=== PATIENT | male | born 1960 | race Caucasian/White ===

== ENCOUNTER 2018-04-27 14:10 | Inpatient (IN) ==
[2018-04-27] MEDS ORDERED: Bisacodyl 10 MG Supp RECTAL PRN (15:18)
[2018-04-27] MEDS ORDERED: Enoxaparin Inj 40 MG/0.4 ML Syringe SQ ONE (15:18)
[2018-04-27] MEDS ORDERED: Sod Chloride 0.9% Inj 1,000 ML OTHER PRN ×2 (15:24)
[2018-04-27] MEDS ORDERED: Acetaminophen 325 MG Tablet PO PRN (15:24)
[2018-04-27] MEDS ORDERED: Heparin 10,000 UNITS/10 ML Vial (for IV use) OTHER PRN ×2 (15:24)
[2018-04-27] MEDS ORDERED: Albumin Human 25% Inj 100 ML IV.SIG PRN (15:24)
[2018-04-27] MEDS ORDERED: Gelatin 12 MM/7 MM Topical Foam TOPICAL PRN (15:24)
[2018-04-27] MEDS ORDERED: Sod Chloride 0.9% Inj 1,000 ML IV.CONT PRN (15:24)
--- NOTE | 2018-04-27 15:37 | P.HPVS ---
History of Present Illness Chief Complaint: Malfunctioning right upper extremity AV fistula History of Present Illness: 58-year-old male with a past medical history of end-stage renal disease who receives hemodialysis via right upper extremity AV fistula on Monday and Monday his last hemodialysis was Monday of this week. He presents to our clinic today with a chief complaint of malfunctioning right upper extremity AV fistula. The patient reports prolonged bleeding from the fistula after hemodialysis. On exam, he was noted to have a pseudoaneurysm with an overlying ulcer. The patient was transferred to the hospital urgently for surgical repair. He denies any chest pain or shortness of breath. - Inpatient Certification If this patient has been admitted as an Inpatient: I certify that the inpatient services were ordered in accordance with Medicare regulations governing the order. This includes certification that hospital inpatient services are reasonable and necessary and in the case of services not specified as inpatient-only under 42 CFR 419.22(n), that they are appropriately provided as inpatient services in accordance to with the 2-midnight benchmark under 43 CFR 412.3(e) Estimated Total Length of Stay (Days): 3 Plans for Post Hospital Care: Home Review of Systems All other systems reviewed negative except as stated in HPI PMFSH - History History Provided By: Patient - Medical History Medical History: Medical History (Last Updated 04/27/18 @ 15:15 by Amanda Dave) Chronic kidney disease (CKD) Dialysis AV fistula malfunction Dialysis patient - Tobacco History Second Hand Smoke Exposure: No Tobacco Use In Past 30 Days: No Smoking Status: Former smoker Tobacco Type: Cigarettes - Alcohol History How Often Do You Have a Drink Containing Alcohol: Never - Substance Use History Substance History: No History of Abuse - Immunization History Tetanus Immunization: Unsure Hx Influenza Vaccine This Season: No Medications and Allergies Active Medications: Active Medications Al Hydroxide/Mg Hydroxide (Milk Of Magnesia Liq) 30 ml PO Q12H PRN PRN Reason: Mild Constipation Bisacodyl (Dulcolax Supp) 10 mg RECTAL DAILY PRN PRN Reason: SEVERE CONSITIPATION Lactulose (Lactulose Liq) 30 ml PO DAILY PRN PRN Reason: SEVERE CONSITIPATION Senna/Docusate Sodium (Chari-Colace) 1 tab PO BID TOÑO Sennosides (Senokot) 17.2 mg PO Q12H PRN PRN Reason: Moderate Constipation Allergies Allergy/AdvReac Type Severity Reaction Status Date / Time No Known Allergies Allergy Verified 04/27/18 15:09 Physical Exam Vital Signs / I&O: Intake & Output 04/26/18 04/27/18 04/27/18 18:59 06:59 18:59 Weight 81.9 kg Other: Weight On Admission 81.9 kg Neuro: Awake alert oriented x3 HEENT: Normocephalic atraumatic Neck: Supple Heart: S1-S2 Lungs: Clear to auscultation bilateral Abdomen: Soft nontender nondistended Vascular: Right upper extremity AV fistula good thrill. There is pseudoaneurysm with an overlying ulceration that is covered by dark scab. No active bleeding. Caprini VTE Risk Assessment Caprini VTE Risk Assessment: Moderate/High Risk (score >= 2) Caprini Risk Assessment Model: Point Value = 1 Point Value = 2 Point Value = 3 Point Value = 5 Age 41-60 Minor surgery BMI > 25 kg/m2 Swollen legs Varicose veins or History of unexplained or recurrent spontaneous Oral contraceptives or hormone replacement Sepsis (< 1 month) Serious lung disease, including pneumonia (< 1 month) Abnormal pulmonary function Acute myocardial infarction Congestive heart failure (< 1 month) History of inflammatory bowel disease Medical patient at bed rest Age 61-74 Arthroscopic surgery Major open surgery (> 45 min) Laparoscopic surgery (> 45 min) Malignancy Confined to bed (> 72 hours) Immobilizing plaster cast Central venous access Age >= 75 History of VTE Family history of VTE Factor V Leiden Prothrombin [id number] Lupus anticoagulant Anticardiolipin antibodies Elevated serum homocysteine Heparin-induced thrombocytopenia Other congenital or acquired thrombophilia Stroke (< 1 month) Elective arthroplasty Hip, pelvis, or leg fracture Acute spinal cord injury (< 1 month) Prophylaxis Regimen: Total Risk Factor Score Risk Level Prophylaxis Regimen 0-1 Low Early ambulation 2 Moderate Order ONE of the following: *Sequential Compression Device (SCD) *Heparin 5000 units SQ BID 3-4 Higher Order ONE of the following medications: *Heparin 5000 units SQ TID *Enoxaparin/Lovenox 40 mg SQ daily (WT < 150 kg, CrCl > 30 mL/min) *Enoxaparin/Lovenox 30 mg SQ daily (WT < 150 kg, CrCl > 10-29 mL/min) *Enoxaparin/Lovenox 30 mg SQ BID (WT < 150 kg, CrCl > 30 mL/min) AND/OR *Sequential Compression Device (SCD) 5 or more Highest Order ONE of the following medications: *Heparin 5000 units SQ TID (Preferred with Epidurals) *Enoxaparin/Lovenox 40 mg SQ daily (WT < 150 kg, CrCl > 30 mL/min) *Enoxaparin/Lovenox 30 mg SQ daily (WT < 150 kg, CrCl > 10-29 mL/min) *Enoxaparin/Lovenox 30 mg SQ BID (WT < 150 kg, CrCl > 30 mL/min) AND *Sequential Compression Device (SCD) Assessment and Plan - Assessment (1) Pseudoaneurysm of AV hemodialysis fistula Code(s): T82.898A - Other specified complication of vascular prosthetic devices , implants and grafts, initial encounter Status: Acute - Plan Right upper extremity AV fistula pseudoaneurysm with ulceration and impending rupture. 1. Admit the patient to the hospital 2. Consult nephrology for hemodialysis today. 3. I will schedule the patient for repair of the right upper extremity pseudoaneurysm and possible salvage of the fistula. 4. I will place a permacath for hemodialysis until wound heals. Wai Garrison MD [facility] [phone]
--- NOTE | 2018-04-27 18:39 | MB ---
cc: Percy Espinoza MD DATE: 04/27/2018 REASON FOR CONSULTATION: End-stage renal disease, on hemodialysis for management. HISTORY OF PRESENT ILLNESS: This is a 58-year-old male with a past medical history of end-stage renal disease on hemodialysis. The etiology of renal failure is not very clear. He has no history of hypertension or diabetes mellitus. Was referred here because of the aneurysm of the right arm arteriovenous fistula. The patient has been on hemodialysis Monday, Monday and Monday and he is getting dialysis at [facility] and has been following with Dr. Mcgowan. The patient was found to have pseudoaneurysm in the right arm AV fistula along with overlying superficial ulceration. There is no discharge or bleeding from there. He has pain, but the pain is mainly in the hand when he goes on dialysis. When he is not on dialysis he does not have any pain. He has been on hemodialysis for the last 3 years. Denies any shortness of breath. No chest pain. No nausea, vomiting. No history of fever. PAST MEDICAL HISTORY: End-stage renal disease, on hemodialysis. PAST SURGICAL HISTORY: History of right arm arteriovenous fistula surgery. REVIEW OF SYSTEMS: There is no history of fever. No headache, dizziness or blurring of vision. No shortness of breath, no chest pain. No palpitation. No nausea or vomiting. No abdominal pain. The patient has last hemodialysis done on Monday. He has pain in the right hand when he gets the dialysis, but when he is not on dialysis he does not have any pain. SOCIAL HISTORY: The patient has no history of smoking or alcoholism. FAMILY HISTORY: Noncontributory. ALLERGIES: HE HAS NO KNOWN DRUG ALLERGIES. MEDICATIONS: 1. His Epogen has been on hold. 2. Catapres 0.1 mg p.r.n. 3. Benadryl p.r.n. mannitol 4. Mannitol. 5. Lactulose. 6. Zofran These are all p.r.n. medications with dialysis. PHYSICAL EXAMINATION: GENERAL: He is awake, alert. He is not in acute distress. VITAL SIGNS: His vitals are not recorded yet and he does not have any labs done either. HEENT: Pupils are mid constricted. Nonicteric sclerae. Conjunctivae normal. NECK: Supple. JVD is not elevated. LUNGS: The patient has bilateral good air entry with few basilar rales. CARDIOVASCULAR: S1, S2. Regular rate and rhythm. ABDOMEN: Soft, flat. No tenderness, slightly distended. EXTREMITIES: He has mild edema in the legs. Right arm AV fistula site is slightly enlarged, especially near the elbow. He has pseudoaneurysm with swelling and superficial ulceration with scab on it. There is no discharge or bleeding. INVESTIGATIONS: No labs or imaging study done. ASSESSMENT AND PLAN: 1. End-stage renal disease on hemodialysis. 2. AV fistula, pseudoaneurysm. 3. Mild fluid overload status. The patient has been on hemodialysis Monday, Monday and Monday for the last 3 years, has been following with Dr. Mcgowan. He is due for dialysis today. I have already arranged for his hemodialysis. He will be going soon for the dialysis. Discussed with the vascular surgery. He will be going for the ligation of his fistula tomorrow and he will need a PermCath for future dialysis and then AV fistula surgery in the future. Thank you for the consultation. I will follow the patient while he is in the hospital, I will follow the labs. Marcie Espinoza MD AQJ/kyleigh , 03:46 PM , 03:56 PM
[2018-04-27 19:01] LABS: Hematocrit 34.6 % (39.0-51.0); Hemoglobin 12.1 gm/dL (13.0-17.0); Mean Corpuscular HGB Conc 34.9 % (32.0-36.0); Mean Corpuscular Hemoglobin 31.1 pg (27.0-34.0); Mean Corpuscular Volume 89.2 fL (80.0-100.0); Mean Platelet Volume 7.5 fL (7.0-11.0); Platelet Count 198 th/mm3 (150-450); Red Blood Count 3.88 mil/mm3 (4.50-5.90); Red Cell Distribution Width 13.4 % (11.6-17.2)
[2018-04-27] MEDS: Senna/Docusate Sodium 8.6/50 MG Tablet PO SCH (20:42)
--- NOTE | 2018-04-27 22:40 | XR ---
EXAM DATE: 04/27/2018 10:37 PM EST AGE/SEX: 58 years / Male INDICATIONS: Preoperative. CLINICAL DATA: This is the patient's initial encounter. Patient reports that signs and symptoms have been present for 1 day and indicates a pain score of 0/10. MEDICAL/SURGICAL HISTORY: None. None. COMPARISON: No prior exams available for comparison. FINDINGS: Multiple calcified granulomas in the left lung apex. Lungs are otherwise clear. The cardiomediastinal contours are unremarkable. Osseous structures are intact. CONCLUSION: 1. Left apical calcified granulomas. 2. Otherwise, no acute abnormality. Electronically signed by: Gordo Ferris MD Board Certified Radiologist 04/27/2018 10:[address]
[2018-04-27] MEDS ORDERED: Chlorhexidine Gluconate 2% 1 Pack (2 Cloths) TOPICAL ONE (23:11)
[2018-04-27] MEDS ORDERED: Metoprolol Tartrate 25 MG Tablet PO ONE (23:11)
[2018-04-27] MEDS ORDERED: Sodium Chlor 0.9% Inj 500 ML IV.SIG SCH (23:45)
[2018-04-28 00:03] LABS: Calcium 8.5 mg/dL (8.5-10.1); Carbon Dioxide 31.3 meq/L (21.0-32.0); Potassium 3.4 meq/L (3.5-5.1)
[2018-04-28 00:43] LABS: Hepatitits B Surface Antigen Nonreactive (Nonreactive)
[2018-04-28 01:17] LABS: Hepatitis A IgM Antibody Nonreactive (Nonreactive)
[2018-04-28] MEDS ORDERED: Protamine Sulfate Inj 50 MG/5 ML Vial ONE (07:07)
[2018-04-28] MEDS ORDERED: Heparin 10,000 UNITS/10 ML Vial (for IV use) ONE (07:07)
[2018-04-28] MEDS ORDERED: Heparin/NS PF Inj 500 ML ONE (07:07)
[2018-04-28] MEDS ORDERED: ceFAZolin 1 GM Premix Inj 2 GM/100 ML PIGGYBACK IV.SIG ONE (07:07)
[2018-04-28] MEDS ORDERED: Bupivacaine 0.5% Inj 50 ML MDV Vial ONE (07:07)
[2018-04-28] MEDS ORDERED: Thrombin Topical 20,000 UNIT Spray Kit TOPICAL ONE (07:08)
[2018-04-28] MEDS ORDERED: fentaNYL Citrate Inj 100 MCG/2 ML Ampul ONE ×2 (10:42→11:09)
[2018-04-28] MEDS ORDERED: *morphine SULFATE 4 MG/ML PERIprocedure ONLY ONE (10:47)
[2018-04-28] MEDS ORDERED: diphenhydrAMINE HCl 50 MG/ML VIAL IV.PUSH ONE (11:09)
[2018-04-28] MEDS: fentaNYL Citrate Inj 100 MCG/2 ML Ampul IV.PUSH SCH ×4 (11:13→11:30)
--- NOTE | 2018-04-28 11:24 | P.OP ---
- Preoperative Diagnosis (1) Pseudoaneurysm of AV hemodialysis fistula - Postoperative Diagnosis (1) Pseudoaneurysm of AV hemodialysis fistula Date of procedure: 04/28/18 Procedure: 1. Repair of a right AV fistula pseudoaneurysm with excision and placement of an interposition graft 2. Ultrasound-guided access of the left internal jugular vein 3. Placement of left internal jugular vein permacath 4. radiological supervision interpreted Anesthesia: GETA Surgeon: Wai Garrison MD Estimated blood loss (mL): 50 Operation and Findings: Finding 1. Ruptured right AV fistula pseudoaneurysm with an overlying ulceration. That was repaired using excision and placement of an interposition bovine carotid graft. 2. Successful placement of a left internal jugular vein permacath. Description of the operation The patient was taken to the operating room, laid supine on the OR table. After general trach anesthesia, the patient was prepped and draped in the standard sterile fashion. Timeout was called with all members in the OR in agreement. An incision was made over the right upper extremity fistula and dissection was taken down through the subcutaneous tissue. The fistula was dissected proximally and distally and proximal distal control was obtained. The patient was heparinized. The pseudoaneurysm and overlying skin were dissected and excised. The tissue was sent for microbiology and pathology. Hemostasis achieved. The wound was closed in multiple layers using 2-0 Vicryl suture followed by Monocryl suture. Sterile dressing was applied. Attention was turned to the placement of a left internal jugular vein permacath. Using ultrasound guidance access, we accessed the left internal jugular vein. A supra core was introduced into the inferior vena cava. The catheter was tunneled in the anterior chest wall. The tract was dilated. The catheter was placed with the tip at the superior vena cava right atrial junction. Catheter flushes and draws without any difficulties. The catheter was secured using nylon suture. The neck skin incision was closed using Monocryl suture. Sterile dressing was applied. The patient tolerated the procedure well and was taken to recovery unit in stable condition.
[2018-04-28] MEDS: Senna/Docusate Sodium 8.6/50 MG Tablet PO SCH ×2 (12:12→19:59)
[2018-04-28 13:46] LABS: Hematocrit 34.8 % (39.0-51.0); Hemoglobin 12.7 gm/dL (13.0-17.0); Mean Corpuscular HGB Conc 36.6 % (32.0-36.0); Mean Corpuscular Hemoglobin 32.6 pg (27.0-34.0); Mean Corpuscular Volume 89.1 fL (80.0-100.0); Mean Platelet Volume 8.1 fL (7.0-11.0); Platelet Count 180 th/mm3 (150-450); Red Cell Distribution Width 13.4 % (11.6-17.2); White Blood Count 11.3 th/mm3 (4.0-11.0)
[2018-04-28 14:05] LABS: Calcium 8.2 mg/dL (8.5-10.1); Potassium 4.7 meq/L (3.5-5.1)
--- NOTE | 2018-04-28 16:14 | XR ---
EXAM DATE: 04/28/2018 3:23 PM EST AGE/SEX: 58 years / Male INDICATIONS: Heart catheter. CLINICAL DATA: This is the patient's initial encounter. Patient reports that signs and symptoms have been present for 1 day and indicates a pain score of Nonresponsive. MEDICAL/SURGICAL HISTORY: Non-responsive. Non-responsive. COMPARISON: No prior exams available for comparison. FINDINGS: Catheter overlies superior vena cava. On the single spot film available. CONCLUSION: Fluoroscopic spot film reveals catheter overlying the expected location of superior vena cava. Electronically signed by: Eduardo Jenkins MD Board Certified Radiologist 04/28/2018 4:13 PM EST
--- NOTE | 2018-04-28 16:21 | XR ---
EXAM DATE: 04/28/2018 1:12 PM EST AGE/SEX: 58 years / Male INDICATIONS: Left sided catheter placement for dialysis, pain at catheter site. CLINICAL DATA: This is the patient's initial encounter. Patient reports that signs and symptoms have been present for 1 day and indicates a pain score of 4/10. MEDICAL/SURGICAL HISTORY: None. None. COMPARISON: [facility] [place], CHEST 1V SINGLE AP, 04/27/2018. . FINDINGS: Double-lumen catheter tip in superior vena cava. No pneumothorax. No effusion. Minimal basilar atelec tasis or scarring. Calcified granulomata upper left lung. CONCLUSION: Left-sided dialysis catheter tip overlies the superior vena cava. Electronically signed by: Eduardo Jenkins MD Board Certified Radiologist 04/28/2018 4:20 PM EST
--- NOTE | 2018-04-28 18:43 | ECG ---
Date Performed: 04/27/2018 Time Performed: 15:50:01 PTAGE: 58 years EKG: Sinus rhythm NORMAL ECG NO PREVIOUS TRACING DOCTOR: Rufino Casillas Interpretating Date/Time 04/28/2018 18:42:03
--- NOTE | 2018-04-28 20:59 | P.PNNP ---
Subjective Interval history: Patient seen in AM, in the RR, after AVF ligation, no SOB. Physical Exam Vital signs: Vital Signs 04/27/18 23:00 04/27/18 23:58 04/28/18 03:00 Temperature 97.1 F L Pulse Rate 66 62 64 Respiratory Rate 16 Blood Pressure 137/64 Pulse Oximetry 04/28/18 04:00 04/28/18 05:00 04/28/18 06:00 Temperature 99.5 F Pulse Rate 66 62 66 Respiratory Rate 18 Blood Pressure 154/67 H Pulse Oximetry 04/28/18 10:29 04/28/18 10:45 04/28/18 11:00 Temperature 97.5 F L Pulse Rate 67 66 68 Respiratory Rate 15 17 17 Blood Pressure 161/79 H 146/51 H 139/60 Pulse Oximetry 99 99 100 04/28/18 11:15 04/28/18 11:30 04/28/18 12:00 Temperature 98.1 F 98.2 F Pulse Rate 66 65 66 Respiratory Rate 19 19 20 Blood Pressure 139/67 140/65 147/65 H Pulse Oximetry 97 100 100 04/28/18 13:00 04/28/18 14:00 04/28/18 15:00 Temperature Pulse Rate 68 74 69 Respiratory Rate Blood Pressure Pulse Oximetry 04/28/18 15:32 04/28/18 16:00 04/28/18 17:00 Temperature 98.4 F Pulse Rate 69 74 76 Respiratory Rate 20 Blood Pressure 147/68 H Pulse Oximetry 99 04/28/18 18:00 Temperature Pulse Rate 82 Respiratory Rate Blood Pressure Pulse Oximetry Intake & Output 04/28/18 04/28/18 04/29/18 06:59 18:59 06:59 Intake Total 240 / 240 780 / 780 Output Total 2100 / 2100 150 / 150 Balance -1860 / -1860 630 / 630 Weight 82 kg Intake: IV 100 / 100 Heparin/NS PF Inj 500 ML @ 0 0 / 0 mls/hr .ROUTE .STK-MED ONE Rx#: [id number] Ancef 1 GM Premix Inj 2 gm In 100 / 100 100 ml @ 0 mls/hr IV.SIG .STK- MED ONE Rx#:[id number] Oral 240 / 240 480 / 480 Anesthesia Amount 200 / 200 Output: Urine 100 / 100 100 / 100 Hemodialysis Amount 1999 Estimated Blood Loss 50 / 50 Other: Date of Last Bowel Movement 04/27/18 04/27/18 # Bowel Movements 0 - Constitutional no acute distress - Routine HEENT Exam Head: Present: normocephalic - Routine Neck Exam Present: supple, full ROM - Routine Cardiovascular Exam Present: RRR, S1, S2 - Routine Abdominal Exam Present: soft - Routine Neurological Exam Present: alert, oriented X3 Assessment and Plan - Assessment (1) End stage chronic kidney disease Code(s): N18.6 - End stage renal disease Status: Acute (2) Pseudoaneurysm of AV hemodialysis fistula Code(s): T82.898A - Other specified complication of vascular prosthetic devices , implants and grafts, initial encounter Status: Acute - Plan Patient with end stage renal disease, admitted with pseudoaneurysm of AVF. Patient has been on HD. HD done yesterday, Now has AVF ligation. Has PermCath and will continue HD.
[2018-04-29] MEDS: Senna/Docusate Sodium 8.6/50 MG Tablet PO SCH ×2 (08:46→20:40)
--- NOTE | 2018-04-29 09:40 | P.PNVS ---
Subjective Subjective/Hospital Course: doing well, pain controlled Objective Vital Signs / I&O: Vital Signs 04/28/18 10:29 04/28/18 10:45 04/28/18 11:00 Temperature 97.5 F L Pulse Rate 67 66 68 Respiratory Rate 15 17 17 Blood Pressure 161/79 H 146/51 H 139/60 Pulse Oximetry 99 99 100 04/28/18 11:15 04/28/18 11:30 04/28/18 12:00 Temperature 98.1 F 98.2 F Pulse Rate 66 65 66 Respiratory Rate 19 19 20 Blood Pressure 139/67 140/65 147/65 H Pulse Oximetry 97 100 100 04/28/18 13:00 04/28/18 14:00 04/28/18 15:00 Temperature Pulse Rate 68 74 69 Respiratory Rate Blood Pressure Pulse Oximetry 04/28/18 15:32 04/28/18 16:00 04/28/18 17:00 Temperature 98.4 F Pulse Rate 69 74 76 Respiratory Rate 20 Blood Pressure 147/68 H Pulse Oximetry 99 04/28/18 18:00 04/28/18 19:00 04/28/18 20:00 Temperature 98 F Pulse Rate 82 78 72 Respiratory Rate 18 Blood Pressure 130/61 Pulse Oximetry 99 04/28/18 21:00 04/28/18 22:00 04/28/18 23:00 Temperature Pulse Rate 70 70 70 Respiratory Rate Blood Pressure Pulse Oximetry 04/29/18 00:00 04/29/18 01:00 04/29/18 02:00 Temperature 98 F Pulse Rate 74 68 68 Respiratory Rate 18 Blood Pressure 130/60 Pulse Oximetry 98 04/29/18 03:00 04/29/18 04:00 04/29/18 05:00 Temperature 97.9 F Pulse Rate 71 72 70 Respiratory Rate 18 Blood Pressure 121/57 L Pulse Oximetry 97 04/29/18 06:00 04/29/18 07:00 04/29/18 07:56 Temperature 98.5 F Pulse Rate 68 53 L 76 Respiratory Rate 20 Blood Pressure 140/67 Pulse Oximetry 99 04/29/18 08:00 Temperature Pulse Rate 85 Respiratory Rate Blood Pressure Pulse Oximetry Intake & Output 04/28/18 04/29/18 04/29/18 18:59 06:59 18:59 Intake Total 780 / 780 240 / 240 Output Total 150 / 150 100 / 100 Balance 630 / 630 140 / 140 Weight 84 kg Intake: IV 100 / 100 Heparin/NS PF Inj 500 ML @ 0 0 / 0 mls/hr .ROUTE .STK-MED ONE Rx#: [id number] Ancef 1 GM Premix Inj 2 gm In 100 / 100 100 ml @ 0 mls/hr IV.SIG .STK- MED ONE Rx#:[id number] Oral 480 / 480 240 / 240 Anesthesia Amount 200 / 200 Output: Urine 100 / 100 100 / 100 Estimated Blood Loss 50 / 50 Other: Date of Last Bowel Movement 04/27/18 04/27/18 04/27/18 # Bowel Movements 0 Physical Exam: left neck CDI. Pcath in place RUE wound CDI. good thrill in the AVF Laboratory Results - last 24 hr 04/28/18 04/28/18 13:20 13:20 WBC 11.3 H D RBC 3.90 L Hgb 12.7 L Hct 34.8 L MCV 89.1 MCH 32.6 MCHC 36.6 H RDW 13.4 Plt Count 180 MPV 8.1 Hematology Comments Sodium 139 Potassium 4.7 D Chloride 99 Carbon Dioxide 29.0 Anion Gap 11 BUN 28 H Creatinine 5.95 H Estimated GFR 10 L Random Glucose 104 Calcium 8.2 L Microbiology 04/28/18 08:50 Fungal Smear - Final Tissue - Other No fungal elements seen 04/28/18 08:50 Gram Stain - Final Tissue - Other Impressions Chest X-Ray 04/27/18 00:00 CONCLUSION: 1. Left apical calcified granulomas. 2. Otherwise, no acute abnormality. Chest X-Ray 04/28/18 00:00 CONCLUSION: Left-sided dialysis catheter tip overlies the superior vena cava. Chest X-Ray 04/28/18 00:00 CONCLUSION: Fluoroscopic spot film reveals catheter overlying the expected location of superior vena cava. 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 S/P repair POD #1 OK to use PCath for HD Hold off AVF use for 2 weeks to allow wound healing Will DC home today HD scheduled for tomorrow as outpatient Wai Garrison MD [facility] [phone]
--- NOTE | 2018-04-29 10:21 | P.PNNP ---
Subjective Interval history: Patient is alert, pain at Rt. AVF surgery site is better. Physical Exam Vital signs: Vital Signs 04/28/18 10:29 04/28/18 10:45 04/28/18 11:00 Temperature 97.5 F L Pulse Rate 67 66 68 Respiratory Rate 15 17 17 Blood Pressure 161/79 H 146/51 H 139/60 Pulse Oximetry 99 99 100 04/28/18 11:15 04/28/18 11:30 04/28/18 12:00 Temperature 98.1 F 98.2 F Pulse Rate 66 65 66 Respiratory Rate 19 19 20 Blood Pressure 139/67 140/65 147/65 H Pulse Oximetry 97 100 100 04/28/18 13:00 04/28/18 14:00 04/28/18 15:00 Temperature Pulse Rate 68 74 69 Respiratory Rate Blood Pressure Pulse Oximetry 04/28/18 15:32 04/28/18 16:00 04/28/18 17:00 Temperature 98.4 F Pulse Rate 69 74 76 Respiratory Rate 20 Blood Pressure 147/68 H Pulse Oximetry 99 04/28/18 18:00 04/28/18 19:00 04/28/18 20:00 Temperature 98 F Pulse Rate 82 78 72 Respiratory Rate 18 Blood Pressure 130/61 Pulse Oximetry 99 04/28/18 21:00 04/28/18 22:00 04/28/18 23:00 Temperature Pulse Rate 70 70 70 Respiratory Rate Blood Pressure Pulse Oximetry 04/29/18 00:00 04/29/18 01:00 04/29/18 02:00 Temperature 98 F Pulse Rate 74 68 68 Respiratory Rate 18 Blood Pressure 130/60 Pulse Oximetry 98 04/29/18 03:00 04/29/18 04:00 04/29/18 05:00 Temperature 97.9 F Pulse Rate 71 72 70 Respiratory Rate 18 Blood Pressure 121/57 L Pulse Oximetry 97 04/29/18 06:00 04/29/18 07:00 04/29/18 07:56 Temperature 98.5 F Pulse Rate 68 53 L 76 Respiratory Rate 20 Blood Pressure 140/67 Pulse Oximetry 99 04/29/18 08:00 04/29/18 09:00 04/29/18 10:00 Temperature Pulse Rate 85 84 89 Respiratory Rate Blood Pressure Pulse Oximetry Intake & Output 04/28/18 04/29/18 04/29/18 18:59 06:59 18:59 Intake Total 780 / 780 240 / 240 Output Total 150 / 150 100 / 100 Balance 630 / 630 140 / 140 Weight 84 kg Intake: IV 100 / 100 Heparin/NS PF Inj 500 ML @ 0 0 / 0 mls/hr .ROUTE .STK-MED ONE Rx#: [id number] Ancef 1 GM Premix Inj 2 gm In 100 / 100 100 ml @ 0 mls/hr IV.SIG .STK- MED ONE Rx#:[id number] Oral 480 / 480 240 / 240 Anesthesia Amount 200 / 200 Output: Urine 100 / 100 100 / 100 Estimated Blood Loss 50 / 50 Other: Date of Last Bowel Movement 04/27/18 04/27/18 04/27/18 # Bowel Movements 0 - Constitutional no acute distress - Routine HEENT Exam Head: Present: normocephalic Eye: Present: EOMI, PERRL ENT: Present: mucous membranes moist - Routine Neck Exam Present: supple, JVD - Routine Respiratory Exam Present: CTA bilaterally - Routine Cardiovascular Exam Present: RRR, S1, S2 - Routine Abdominal Exam Present: soft, normoactive bowel sounds, distended - Routine Neurological Exam Present: alert, oriented X3 Assessment and Plan - Assessment (1) End stage chronic kidney disease Code(s): N18.6 - End stage renal disease Status: Acute (2) Pseudoaneurysm of AV hemodialysis fistula Code(s): T82.898A - Other specified complication of vascular prosthetic devices , implants and grafts, initial encounter Status: Acute - Plan Patient with end stage renal disease, admitted with pseudoaneurysm of AVF. Patient has been on HD. Now has AVF ligation done yesterday. Has PermCath and will continue HD. Patient now for discharge, to continue HD as out patient. Told to call his HD center to make sure he has place for tomorrow.
--- NOTE | 2018-04-29 19:55 | XR ---
EXAM DATE: 04/29/2018 7:43 PM EST AGE/SEX: 58 years / Male INDICATIONS: Chest pain. CLINICAL DATA: This is the patient's subsequent encounter. Patient reports that signs and symptoms h ave been present for 1 day and indicates a pain score of 3/10. MEDICAL/SURGICAL HISTORY: None. . Catheter in vena cava. [place] [facility] [place]. . FINDINGS: Left-sided dialysis catheter in the superior vena cava. No consolidation or effusion. Calcified granu lomata upper left lung. No pneumothorax. CONCLUSION: No focal airspace disease or effusion. Calcified granulomata upper left lung. Electronically signed by: Eduardo Jenkins MD Board Certified Radiologist 04/29/2018 7:54 PM EST
--- NOTE | 2018-04-29 20:25 | ECG ---
Date Performed: 04/29/2018 Time Performed: 19:01:02 PTAGE: 58 years EKG: Sinus tachycardia. Lateral T wave changes are nonspecific Borderline ECG PREVIOUS TRACING : 04/27/2018 15.50 Compared to previous tracing, heart rate has increased. DOCTOR: Manpreet Rothman Interpretating Date/Time 04/29/2018 20:24:25
[2018-04-30] MEDS: Senna/Docusate Sodium 8.6/50 MG Tablet PO SCH (08:03)
--- NOTE | 2018-04-30 08:27 | P.PNVS ---
Subjective Subjective/Hospital Course: chest pain overnight resolved Objective Vital Signs / I&O: Vital Signs 04/29/18 09:00 04/29/18 10:00 04/29/18 11:00 Temperature Pulse Rate 84 89 88 Respiratory Rate Blood Pressure Pulse Oximetry 04/29/18 11:55 04/29/18 12:00 04/29/18 13:00 Temperature 98.6 F Pulse Rate 99 H 91 H 87 Respiratory Rate 20 Blood Pressure 155/74 H Pulse Oximetry 97 04/29/18 14:00 04/29/18 19:00 04/29/18 20:00 Temperature Pulse Rate 96 H 98 H 98 H Respiratory Rate 18 Blood Pressure 124/74 Pulse Oximetry 97 04/29/18 21:00 04/29/18 22:00 04/29/18 23:00 Temperature Pulse Rate 92 H 84 82 Respiratory Rate Blood Pressure Pulse Oximetry 04/30/18 00:00 04/30/18 01:00 04/30/18 02:00 Temperature 100.0 F H Pulse Rate 82 80 80 Respiratory Rate 16 Blood Pressure 138/66 Pulse Oximetry 98 04/30/18 03:00 04/30/18 04:00 04/30/18 05:00 Temperature Pulse Rate 78 82 75 Respiratory Rate 18 Blood Pressure 130/70 Pulse Oximetry 95 04/30/18 06:00 04/30/18 07:00 Temperature Pulse Rate 73 76 Respiratory Rate Blood Pressure Pulse Oximetry Intake & Output 04/29/18 04/30/18 04/30/18 18:59 06:59 18:59 Intake Total 480 / 480 480 / 480 Output Total 1999 0 / 0 Balance -1520 / -1520 480 / 480 Weight 84 kg Intake: Oral 480 / 480 480 / 480 Output: Urine 0 / 0 0 / 0 Hemodialysis Amount 1999 Other: Date of Last Bowel Movement 04/27/18 # Bowel Movements 0 Physical Exam: RUE wound CDI Left PCath CDI Laboratory Results - last 24 hr 04/29/18 04/30/18 19:32 00:55 Troponin I Less than 0.02 L Less than 0.02 L Microbiology 04/28/18 08:50 Gram Stain - Final Tissue - Other Wound Culture - Preliminary Impressions Chest X-Ray 04/28/18 00:00 CONCLUSION: Left-sided dialysis catheter tip overlies the superior vena cava. Chest X-Ray 04/28/18 00:00 CONCLUSION: Fluoroscopic spot film reveals catheter overlying the expected location of superior vena cava. Chest X-Ray 04/29/18 19:15 CONCLUSION: No focal airspace disease or effusion. Calcified granulomata upper left lung. 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 S/P repair POD #2 Atypical chest pain resolved EKG, Trops negative will DC home today [facility]ai Garrison [facility] [phone]
--- NOTE | 2018-04-30 20:13 | P.PNNP ---
Subjective Interval history: Patient seen in AM, no SOB, feeling better. Physical Exam Vital signs: Vital Signs 04/29/18 21:00 04/29/18 22:00 04/29/18 23:00 Temperature Pulse Rate 92 H 84 82 Respiratory Rate Blood Pressure Pulse Oximetry 04/30/18 00:00 04/30/18 01:00 04/30/18 02:00 Temperature 100.0 F H Pulse Rate 82 80 80 Respiratory Rate 16 Blood Pressure 138/66 Pulse Oximetry 98 04/30/18 03:00 04/30/18 04:00 04/30/18 05:00 Temperature Pulse Rate 78 82 75 Respiratory Rate 18 Blood Pressure 130/70 Pulse Oximetry 95 04/30/18 06:00 04/30/18 07:00 04/30/18 08:00 Temperature 98.3 F Pulse Rate 73 76 82 Respiratory Rate 20 Blood Pressure 124/65 Pulse Oximetry 97 04/30/18 09:00 04/30/18 10:00 04/30/18 11:00 Temperature Pulse Rate 76 74 80 Respiratory Rate Blood Pressure Pulse Oximetry 04/30/18 12:00 Temperature 98.3 F Pulse Rate 80 Respiratory Rate 20 Blood Pressure 153/67 H Pulse Oximetry 96 Intake & Output 04/30/18 04/30/18 05/01/18 06:59 18:59 06:59 Intake Total 480 / 480 Output Total 0 / 0 Balance 480 / 480 Weight 84 kg Intake: Oral 480 / 480 Output: Urine 0 / 0 - Constitutional no acute distress, obese - Routine HEENT Exam Head: Present: normocephalic - Routine Neck Exam Present: supple, full ROM, JVD - Routine Cardiovascular Exam Present: RRR, S1, S2 - Routine Abdominal Exam Present: soft, normoactive bowel sounds - Routine Neurological Exam Present: alert, oriented X3 Assessment and Plan - Assessment (1) End stage chronic kidney disease Code(s): N18.6 - End stage renal disease Status: Acute (2) Pseudoaneurysm of AV hemodialysis fistula Code(s): T82.898A - Other specified complication of vascular prosthetic devices , implants and grafts, initial encounter Status: Acute - Plan Patient with end stage renal disease, admitted with pseudoaneurysm of AVF. Patient has been on HD. Now has AVF ligation done yesterday. Has PermCath and will continue HD. Patient has HD done yesterday. For discharge home and continue HD as out patient. To follow with his [employer].
== END 2018-04-30 12:30 | disposition home or self-care (01) | DRG 252 ==
LOC: N07 14:10 → HCPC 19:53 → HCIS 04-29 20:01
PROVIDERS: ADMIT Surgery; ATTEND Surgery
PROC: AVGFTUE (ICD-10-PCS; 2018-04-28 07:37)
CPT/HCPCS: 71010; 71045; 76000; 80048; 80074; 84484; 85027; 87015; 87070; 87077; 87102; 87116; 87176; 87186; 87205; 87206; 88304; 88305; 90774; 90784; 90935; 93005; 96374; C8952; J0690; J1200; J1644; J2270; J2720; J3010; J7030